=== PATIENT | female | born 1995 | race American Indian/Alaskan Native ===

== ENCOUNTER 2016-06-16 18:42 | Emergency (ER) | payer SELFPAY | END 2016-06-16 22:23 | disposition left against medical advice (07) | LOC: ED 18:42 | DX: R10.9 Unspecified abdominal pain (principal); Z53.21 Procedure and treatment not carried out due to patient leaving prior to being seen by health care provider ==

== ENCOUNTER 2016-06-27 23:59 | Emergency (ER) | payer BC ==
[2016-06-28 02:43] LABS: Basophils % (Auto) 0.2 % (0.0-1.8); Eosinophils % (Auto) 1.2 % (0.0-4.3); Mean Corpuscular HGB Conc 33 % (30-34); Mean Corpuscular Hemoglobin 29 pg (28-32); Mean Corpuscular Volume 90 fl (79-97); Platelet Count 230 K/mm3 (140-440); Red Blood Count 4.11 M/mm3 (3.65-5.03); Red Cell Distribution Width 13.8 % (13.2-15.2); White Blood Count 5.1 K/mm3 (4.5-11.0)
[2016-06-28 02:52] LABS: Bacteria,Urine 4+ /HPF (Negative); Bilirubin,Urine NEG (Negative); Blood,Urine LG (Negative); Ketones,Urine TR mg/dL (Negative); Leukocyte Esterase,Urine MOD (Negative); Mucus,Urine 3+ /HPF; Nitrite,Urine NEG (Negative); Urobilinogen,Urine < 2.0 mg/dL (<2.0)
[2016-06-28 02:55] LABS: RBC,Urine > 182.0 /HPF (0.0-6.0); WBC,Urine > 182.0 /HPF (0.0-6.0)
[2016-06-28 05:14] VITALS: BP 115/64
--- NOTE | 2016-06-28 05:17 | Emergency Department Report ---
ED Female HPI - General Chief complaint: Vaginal Bleeding Stated complaint: VAGINAL BLEEDING, ABDOMINAL PAIN Time Seen by Provider: 06/28/16 05:00 Source: patient, RN notes reviewed Mode of arrival: Ambulatory Limitations: No Limitations - History of Present Illness Initial comments: This is a 20-year-old female. She is previously unknown to me. She does not have a primary care doctor. She has no chronic medical conditions. She presents to the ER with vaginal bleeding for 2 days. The bleeding is constant. It is associated with vaginal cramping. There is no nausea, vomiting or diarrhea. No fevers or chills. No chest pain or shortness of breath. There is no right lower quadrant pain. No irritative or obstructive urinary symptoms. No urinary frequency. No recent vaginal trauma, no recent sexual intercourse. MD Complaint: vaginal bleeding -: Gradual Location: suprapubic Radiation: non-radiating Severity: mild Quality: cramping Consistency: intermittent Improves with: none Worsens with: none Are you Now?: No Associated Symptoms: vaginal bleeding. denies: vaginal discharge - Related Data Sexually active: Yes Previous Rx's Medication Instructions Recorded Last Taken Type Amoxicillin/K Clav Tab [Augmentin 1 tab PO BID #20 tablet 03/17/14 Unknown Rx 875MG] Famotidine [Pepcid] 20 mg PO BID #40 tablet 03/17/14 Unknown Rx Fluticasone Propionate [Flonase] 2 sprays NS QDAY #1 bottle 03/17/14 Unknown Rx Loratadine [Claritin] 10 mg PO DAILY #30 tablet 03/17/14 Unknown Rx Promethazine /Codeine 5 ml PO Q6H PRN #150 ml 03/17/14 Unknown Rx [Phenergan/Codeine 6.25-10 mg/5 ml] Nitrofurantoin [place]/M-Cryst 100 mg PO Q12HR #14 capsule 08/12/15 Unknown Rx [Macrobid CAP] Phenazopyridine [Pyridium] 200 mg PO BID #6 tab 08/12/15 Unknown Rx Naproxen [Naprosyn] 500 mg PO BID #20 tablet 12/07/15 Unknown Rx Ketorolac [Toradol] 10 mg PO Q6H PRN #20 tablet 06/28/16 Unknown Rx Allergies Allergy/AdvReac Type Severity Reaction Status Date / Time No Known Allergies Allergy Verified 03/17/14 09:17 ED Review of Systems ROS: Stated complaint: VAGINAL BLEEDING, ABDOMINAL PAIN Other details as noted in HPI Constitutional: denies: fever Eyes: denies: vision change ENT: denies: epistaxis Respiratory: denies: cough Cardiovascular: denies: chest pain Gastrointestinal: abdominal pain Genitourinary: abnormal menses Musculoskeletal: as per HPI Skin: denies: lesions Neurological: denies: weakness Psychiatric: denies: depression ED Past Medical Hx - Past Medical History Previous Medical History?: Yes Hx Asthma: Yes - Surgical History Past Surgical History?: No - Social History Smoking Status: Current Every Day Smoker Substance Use Type: None - Medications Home Medications: Home Medications Medication Instructions Recorded Confirmed Last Taken Type Amoxicillin/K Clav Tab [Augmentin 1 tab PO BID #20 tablet 03/17/14 Unknown Rx 875MG] Famotidine [Pepcid] 20 mg PO BID #40 tablet 03/17/14 Unknown Rx Fluticasone Propionate [Flonase] 2 sprays NS QDAY #1 bottle 03/17/14 Unknown Rx Loratadine [Claritin] 10 mg PO DAILY #30 tablet 03/17/14 Unknown Rx Promethazine /Codeine 5 ml PO Q6H PRN #150 ml 03/17/14 Unknown Rx [Phenergan/Codeine 6.25-10 mg/5 ml] Nitrofurantoin [place]/M-Cryst 100 mg PO Q12HR #14 capsule 08/12/15 Unknown Rx [Macrobid CAP] Phenazopyridine [Pyridium] 200 mg PO BID #6 tab 08/12/15 Unknown Rx Naproxen [Naprosyn] 500 mg PO BID #20 tablet 12/07/15 Unknown Rx Ketorolac [Toradol] 10 mg PO Q6H PRN #20 tablet 06/28/16 Unknown Rx ED Physical Exam - General Limitations: No Limitations General appearance: alert, in no apparent distress - Head Head exam: Present: atraumatic, normocephalic - Eye Eye exam: Present: normal appearance, EOMI. Absent: nystagmus - ENT ENT exam: Present: normal exam, normal orophraynx, mucous membranes moist, normal external ear exam - Neck Neck exam: Present: normal inspection, full ROM. Absent: tenderness, meningismus - Respiratory Respiratory exam: Present: normal lung sounds bilaterally. Absent: respiratory distress, wheezes, rales, rhonchi, stridor, chest wall tenderness, accessory muscle use, decreased breath sounds, prolonged expiratory - Cardiovascular Cardiovascular Exam: Present: regular rate, normal rhythm, normal heart sounds. Absent: bradycardia, tachycardia, irregular rhythm, systolic murmur, diastolic murmur, rubs, gallop - GI/Abdominal GI/Abdominal exam: Present: soft, normal bowel sounds. Absent: distended, tenderness, guarding, pulsatile mass - External exam: Present: normal external exam Speculum exam: Present: vaginal bleeding Bi-manual exam: Present: normal bi-manual exam, other (minimal vaginal bleeding. During the gynecologic examination, I am escorted by emergency room this Hellen Ortiz). Absent: cervical motion tendernes, adnexal tenderness, adnexal mass - Extremities Exam Extremities exam: Present: normal inspection, full ROM, normal capillary refill. Absent: tenderness, pedal edema, joint swelling, calf tenderness - Back Exam Back exam: Present: normal inspection, full ROM. Absent: tenderness, CVA tenderness (R), CVA tenderness (L), muscle spasm, paraspinal tenderness, vertebral tenderness - Neurological Exam Neurological exam: Present: alert, oriented X3, normal gait, other (Extraocular movements intact. Tongue midline. No facial droop. Facial sensation intact to light touch in the V1, V2, V3 distribution bilaterally. 5 and 5 strength in 4 extremities.. Sensation is intact to light touch in 4 extremities.). Absent : motor sensory deficit - Psychiatric Psychiatric exam: Present: normal affect, normal mood - Skin Skin exam: Present: warm, dry, intact, normal color. Absent: rash ED Course Vital Signs 06/28/16 06/28/16 01:16 05:12 Temperature 97.6 F 98.3 F Pulse Rate 62 78 Respiratory 14 Rate Blood Pressure 111/57 Blood Pressure 115/64 [Left] O2 Sat by Pulse 100 99 Oximetry - Reevaluation(s) Reevaluation #1: 06/28/16 05:24 Differential diagnosis: Dysfunctional uterine bleeding, , urinary tract infection Assessment and plan: 20-year-old female with crampy vaginal bleeding, no irritative or obstructive urinary symptoms, urinalysis shows 4+ bacteria, this is most likely secondary to vaginal bleeding. Hemoglobin and hematocrit are stable, she is not symptomatic, does not require packed red blood cell transfusion. Her gynecologic and abdominal examinations are benign and unremarkable, she is nontender, mildly she requires advanced imaging at this time. Symptoms are most likely consistent with dysfunctional uterine bleeding. I don't believe antibiotic therapy is indicated at this time. Patient declines pain medication at this time. She is instructed to follow up with outpatient gynecology. Return precautions are extensively reviewed. ED Medical Decision Making - Lab Data Result diagrams: 06/28/16 02:02 Vital Signs 06/28/16 06/28/16 01:16 05:12 Temperature 97.6 F 98.3 F Pulse Rate 62 78 Respiratory 14 Rate Blood Pressure 111/57 Blood Pressure 115/64 [Left] O2 Sat by Pulse 100 99 Oximetry Lab Results 06/28/16 06/28/16 06/28/16 Range/Units 02:02 02:02 02:05 WBC 5.1 (4.5-11.0) K/mm3 RBC 4.11 (3.65-5.03) M/mm3 Hgb 12.0 (10.1-14.3) gm/dl Hct 37.0 (30.3-42.9) % MCV 90 (79-97) fl MCH 29 (28-32) pg MCHC 33 (30-34) % RDW 13.8 (13.2-15.2) % Plt Count 230 (140-440) K/mm3 Lymph % (Auto) 45.2 H (13.4-35.0) % [place] % (Auto) 8.6 H (0.0-7.3) % Eos % (Auto) 1.2 (0.0-4.3) % Baso % (Auto) 0.2 (0.0-1.8) % Lymph # 2.3 (1.2-5.4) K/mm3 [place] # 0.4 (0.0-0.8) K/mm3 Eos # 0.1 (0.0-0.4) K/mm3 Baso # 0.0 (0.0-0.1) K/mm3 Seg Neutrophils % 44.8 (40.0-70.0) % Seg Neutrophils # 2.3 (1.8-7.7) K/mm3 HCG, Quant < 2 (0-4) mIU/mL Urine Color (Yellow) Urine Turbidity (Clear) Urine pH (5.0-7.0) Ur Specific [place] (1.003-1.030) Urine Protein (Negative) mg/dL Urine Glucose (UA) (Negative) mg/dL Urine Ketones (Negative) mg/dL Urine Blood (Negative) Urine Nitrite (Negative) Ur Reducing Substances Urine Bilirubin (Negative) Urine Ictotest Urine Urobilinogen (<2.0) mg/dL Ur Leukocyte Esterase (Negative) Urine WBC (Auto) (0.0-6.0) /HPF Urine RBC (Auto) (0.0-6.0) /HPF U Epithel Cells (Auto) (0-13.0) /HPF Urine Bacteria (Auto) (Negative) /HPF Urine Mucus /HPF Urine HCG, Qual (Negative) Blood Type B POSITIVE Antibody Screen TNR 06/28/16 Range/Units Unknown WBC (4.5-11.0) K/mm3 RBC (3.65-5.03) M/mm3 Hgb (10.1-14.3) gm/dl Hct (30.3-42.9) % MCV (79-97) fl MCH (28-32) pg MCHC (30-34) % RDW (13.2-15.2) % Plt Count (140-440) K/mm3 Lymph % (Auto) (13.4-35.0) % [place] % (Auto) (0.0-7.3) % Eos % (Auto) (0.0-4.3) % Baso % (Auto) (0.0-1.8) % Lymph # (1.2-5.4) K/mm3 [place] # (0.0-0.8) K/mm3 Eos # (0.0-0.4) K/mm3 Baso # (0.0-0.1) K/mm3 Seg Neutrophils % (40.0-70.0) % Seg Neutrophils # (1.8-7.7) K/mm3 HCG, Quant (0-4) mIU/mL Urine Color Red (Yellow) Urine Turbidity Cloudy (Clear) Urine pH 6.0 (5.0-7.0) Ur Specific [place] 1.030 (1.003-1.030) Urine Protein 100 mg/dl (Negative) mg/dL Urine Glucose (UA) Neg (Negative) mg/dL Urine Ketones Tr (Negative) mg/dL Urine Blood Lg (Negative) Urine Nitrite Neg (Negative) Ur Reducing Substances Not Reportable Urine Bilirubin Neg (Negative) Urine Ictotest Not Reportable Urine Urobilinogen < 2.0 (<2.0) mg/dL Ur Leukocyte Esterase Mod (Negative) Urine WBC (Auto) > 182.0 H (0.0-6.0) /HPF Urine RBC (Auto) > 182.0 (0.0-6.0) /HPF U Epithel Cells (Auto) 4.0 (0-13.0) /HPF Urine Bacteria (Auto) 4+ (Negative) /HPF Urine Mucus 3+ /HPF Urine HCG, Qual Negative (Negative) Blood Type Antibody Screen Critical care attestation.: If time is entered above; I have spent that time in minutes in the direct care of this critically ill patient, excluding procedure time. ED Disposition Clinical Impression: Vaginal bleeding Disposition: DISCHARGED TO HOME OR SELFCARE Is pt being admited?: No Does the pt Need Aspirin: No Condition: Stable Instructions: Dysfunctional Uterine Bleeding (ED) Additional Instructions: Take the medication as needed/directed. Cultures was sent today, results will be available in the next 3-5 days. Follow up with any of the listed gynecology specialist within the next 7-10 days. Return to the ER right away with new pain , worsened pain, migration of pain, bleeding more than 2 pads soaked through and through per hour, dizziness, lightheadedness, chest pain or shortness of breath. Had a primary care doctor or facsimile operator specialist contact medical records department to obtain culture results. smptoms most likely coming from dysfunctional uterine bleeding, which is a form of irregular menstruation secondary to hormonal abnormalities. A facsimile operator is best suited to manage this. Prescriptions: Ketorolac [Toradol] 10 mg PO Q6H PRN #20 tablet PRN Reason: Pain Referrals: CHERRY BROTHERS MD [Primary Care Provider] - 3-5 Days [facility] [Provider Group] - 3-5 Days [facility] [Provider Group] - 3-5 Days [facility] [Provider Group] - 3-5 Days Forms: Work/School Release Form(ED)
== END 2016-06-28 07:09 | disposition home or self-care (01) ==
LOC: ED 23:59
DX: N93.9 Abnormal uterine and vaginal bleeding, unspecified (principal); J45.909 Unspecified asthma, uncomplicated; F17.200 Nicotine dependence, unspecified, uncomplicated
CPT/HCPCS: 36415; 81001; 81025; 84702; 85025; 86850; 86900; 86901; 87210; 87591

== ENCOUNTER 2017-05-20 08:18 | Emergency (ER) | payer BC ==
[2017-05-20 08:34] VITALS: BP 138/78
[2017-05-20 08:48] LABS: Basophils % (Auto) 0.5 % (0.0-1.8); Hematocrit 38.4 % (30.3-42.9); Lymphocytes # (Auto) 1.4 K/mm3 (1.2-5.4); Lymphocytes % (Auto) 41.8 % (13.4-35.0); Mean Corpuscular HGB Conc 34 % (30-34); Mean Corpuscular Hemoglobin 31 pg (28-32); Mean Corpuscular Volume 91 fl (79-97); Monocytes # (Auto) 0.3 K/mm3 (0.0-0.8); Platelet Count 239 K/mm3 (140-440); Red Cell Distribution Width 13.3 % (13.2-15.2)
[2017-05-20 09:03] LABS: Alanine Aminotransferase 12 units/L (7-56); Albumin 4.3 g/dL (3.9-5); BUN/Creatinine Ratio 14; Blood Urea Nitrogen 7 mg/dL (7-17); Calcium 8.9 mg/dL (8.4-10.2); Hemolysis Index 2
[2017-05-20 09:10] LABS: Bacteria,Urine 2+ /HPF (Negative); Bilirubin,Urine NEG (Negative); Blood,Urine NEG (Negative); Color,Urine Yellow (Yellow); Hyaline Casts,Urine 1 /LPF; Mucus,Urine FEW /HPF; Protein,Urine <15 mg/dL mg/dL (Negative); Urobilinogen,Urine < 2.0 mg/dL (<2.0)
--- NOTE | 2017-05-20 09:13 | Emergency Department Report ---
ED Abdominal Pain HPI - General Chief Complaint: Abdominal Pain Stated Complaint: RIGHT FLANK PAIN Time Seen by Provider: 05/20/17 09:12 Source: patient Mode of arrival: Ambulatory Limitations: No Limitations - History of Present Illness Initial Comments: Patient complains of an area of soreness which is essentially at the right anterior costal cartilage margin. Later after her ultrasound was negative, she informed me that she has a small child that lives to run right into her chest area and that it might be just inflamed. She's had the pain intermittently for 2 weeks. It is unrelated to eating. This had no nausea no vomiting no diarrhea no radiation of the pain or flank pain itself. She denies any urinary symptoms. She's had no fever or chills. She's had no recent travel, no cough and no dyspnea. There's been no swelling or pain. She denies any prior medical history. MD Complaint: abdominal pain -: Gradual, week(s) Location: RUQ Radiation: none Migration to: no migration Severity: moderate Quality: aching Consistency: intermittent, now resolved Improves With: nothing Worsens With: nothing Associated Symptoms: denies other symptoms - Related Data Previous Rx's Medication Instructions Recorded Last Taken Type Amoxicillin/K Clav Tab [Augmentin 1 tab PO BID #20 tablet 03/17/14 Unknown Rx 875MG] Famotidine [Pepcid] 20 mg PO BID #40 tablet 03/17/14 Unknown Rx Fluticasone Propionate [Flonase] 2 sprays NS QDAY #1 bottle 03/17/14 Unknown Rx Loratadine [Claritin] 10 mg PO DAILY #30 tablet 03/17/14 Unknown Rx Promethazine /Codeine 5 ml PO Q6H PRN #150 ml 03/17/14 Unknown Rx [Phenergan/Codeine 6.25-10 mg/5 ml] Nitrofurantoin [place]/M-Cryst 100 mg PO Q12HR #14 capsule 08/12/15 Unknown Rx [Macrobid CAP] Phenazopyridine [Pyridium] 200 mg PO BID #6 tab 08/12/15 Unknown Rx Naproxen [Naprosyn] 500 mg PO BID #20 tablet 12/07/15 Unknown Rx Ketorolac [Toradol] 10 mg PO Q6H PRN #20 tablet 06/28/16 Unknown Rx Sulfamethoxazole/Trimethoprim 1 each PO BID #14 tablet 05/20/17 Unknown Rx [Bactrim 400-80 mg Tablet] Allergies Allergy/AdvReac Type Severity Reaction Status Date / Time No Known Allergies Allergy Verified 03/17/14 09:17 ED Review of Systems ROS: Stated complaint: RIGHT FLANK PAIN Other details as noted in HPI Constitutional: denies: chills, fever Eyes: denies: eye pain, eye discharge, vision change ENT: denies: ear pain, throat pain Respiratory: denies: cough, shortness of breath, wheezing Cardiovascular: denies: chest pain, palpitations Endocrine: no symptoms reported Gastrointestinal: denies: abdominal pain, nausea, diarrhea Genitourinary: denies: urgency, dysuria, discharge Musculoskeletal: as per HPI. denies: back pain, joint swelling, arthralgia Skin: denies: rash, lesions Neurological: denies: headache, weakness, paresthesias Psychiatric: denies: anxiety, depression Hematological/Lymphatic: denies: easy bleeding, easy bruising ED Past Medical Hx - Past Medical History Hx Asthma: Yes - Surgical History Past Surgical History?: No - Social History Smoking Status: Former Smoker Substance Use Type: Marijuana - Medications Home Medications: Home Medications Medication Instructions Recorded Confirmed Last Taken Type Amoxicillin/K Clav Tab [Augmentin 1 tab PO BID #20 tablet 03/17/14 Unknown Rx 875MG] Famotidine [Pepcid] 20 mg PO BID #40 tablet 03/17/14 Unknown Rx Fluticasone Propionate [Flonase] 2 sprays NS QDAY #1 bottle 03/17/14 Unknown Rx Loratadine [Claritin] 10 mg PO DAILY #30 tablet 03/17/14 Unknown Rx Promethazine /Codeine 5 ml PO Q6H PRN #150 ml 03/17/14 Unknown Rx [Phenergan/Codeine 6.25-10 mg/5 ml] Nitrofurantoin [place]/M-Cryst 100 mg PO Q12HR #14 capsule 08/12/15 Unknown Rx [Macrobid CAP] Phenazopyridine [Pyridium] 200 mg PO BID #6 tab 08/12/15 Unknown Rx Naproxen [Naprosyn] 500 mg PO BID #20 tablet 12/07/15 Unknown Rx Ketorolac [Toradol] 10 mg PO Q6H PRN #20 tablet 06/28/16 Unknown Rx Sulfamethoxazole/Trimethoprim 1 each PO BID #14 tablet 05/20/17 Unknown Rx [Bactrim 400-80 mg Tablet] ED Physical Exam - General Limitations: No Limitations General appearance: alert, in no apparent distress - Head Head exam: Present: atraumatic, normocephalic - Eye Eye exam: Present: normal appearance. Absent: scleral icterus - ENT ENT exam: Present: mucous membranes moist - Neck Neck exam: Present: normal inspection - Respiratory Respiratory exam: Present: normal lung sounds bilaterally. Absent: respiratory distress - Cardiovascular Cardiovascular Exam: Present: regular rate, normal rhythm. Absent: systolic murmur, diastolic murmur, rubs, gallop - GI/Abdominal GI/Abdominal exam: Present: soft, normal bowel sounds. Absent: distended, tenderness, guarding, rebound, rigid, organomegaly, mass, bruit, pulsatile mass , hernia - Extremities Exam Extremities exam: Present: normal inspection. Absent: pedal edema, joint swelling, calf tenderness - Back Exam Back exam: Present: normal inspection. Absent: CVA tenderness (R), CVA tenderness (L) - Neurological Exam Neurological exam: Present: alert, oriented X3, CN II-XII intact. Absent: motor sensory deficit - Psychiatric Psychiatric exam: Present: normal affect, normal mood - Skin Skin exam: Present: warm, dry, intact, normal color. Absent: rash ED Course Vital Signs 05/20/17 08:30 Temperature 98.3 F Pulse Rate 81 Respiratory 20 Rate Blood Pressure 138/78 O2 Sat by Pulse 100 Oximetry - Reevaluation(s) Reevaluation #1: Patient remains asymptomatic here. I'm going to cover her nitrite positive urine with Macrobid and culture. She is referred to her primary care provider for follow-up. 05/20/17 11:52 ED Medical Decision Making - Lab Data Result diagrams: 05/20/17 08:36 05/20/17 08:36 Laboratory Results - last 24 hr 05/20/17 05/20/17 05/20/17 08:34 08:36 08:36 WBC 3.3 L RBC 4.20 Hgb 13.0 Hct 38.4 MCV 91 MCH 31 MCHC 34 RDW 13.3 Plt Count 239 Lymph % (Auto) 41.8 H [place] % (Auto) 8.0 H Eos % (Auto) 1.0 Baso % (Auto) 0.5 Lymph # 1.4 [place] # 0.3 Eos # 0.0 Baso # 0.0 Seg Neutrophils % 48.7 Seg Neutrophils # 1.6 L Sodium 139 Potassium 4.3 Chloride 99.8 Carbon Dioxide 28 Anion Gap 16 BUN 7 Creatinine 0.5 L Estimated GFR > 60 BUN/Creatinine Ratio 14 Glucose 87 Calcium 8.9 Total Bilirubin 0.60 AST 22 ALT 12 Alkaline Phosphatase 61 Total Protein 7.3 Albumin 4.3 Albumin/Globulin Ratio 1.4 HCG, Qual Urine Bilirubin Neg Urine RBC (Auto) 1.0 U Epithel Cells (Auto) 1.0 05/20/17 08:36 WBC RBC Hgb Hct MCV MCH MCHC RDW Plt Count Lymph % (Auto) [place] % (Auto) Eos % (Auto) Baso % (Auto) Lymph # [place] # Eos # Baso # Seg Neutrophils % Seg Neutrophils # Sodium Potassium Chloride Carbon Dioxide Anion Gap BUN Creatinine Estimated GFR BUN/Creatinine Ratio Glucose Calcium Total Bilirubin AST ALT Alkaline Phosphatase Total Protein Albumin Albumin/Globulin Ratio HCG, Qual Negative Urine Bilirubin Urine RBC (Auto) U Epithel Cells (Auto) Laboratory Results - last 24 hr 05/20/17 05/20/17 05/20/17 08:34 08:36 08:36 WBC 3.3 L RBC 4.20 Hgb 13.0 Hct 38.4 MCV 91 MCH 31 MCHC 34 RDW 13.3 Plt Count 239 Lymph % (Auto) 41.8 H [place] % (Auto) 8.0 H Eos % (Auto) 1.0 Baso % (Auto) 0.5 Lymph # 1.4 [place] # 0.3 Eos # 0.0 Baso # 0.0 Seg Neutrophils % 48.7 Seg Neutrophils # 1.6 L Sodium 139 Potassium 4.3 Chloride 99.8 Carbon Dioxide 28 Anion Gap 16 BUN 7 Creatinine 0.5 L Estimated GFR > 60 BUN/Creatinine Ratio 14 Glucose 87 Calcium 8.9 Total Bilirubin 0.60 AST 22 ALT 12 Alkaline Phosphatase 61 Total Protein 7.3 Albumin 4.3 Albumin/Globulin Ratio 1.4 HCG, Qual Urine Color Yellow Urine Turbidity Clear Urine pH 6.0 Ur Specific [place] 1.019 Urine Protein <15 mg/dl Urine Glucose (UA) Neg Urine Ketones Neg Urine Blood Neg Urine Nitrite Pos Urine Bilirubin Neg Urine Urobilinogen < 2.0 Ur Leukocyte Esterase Tr Urine WBC (Auto) 3.0 Urine RBC (Auto) 1.0 U Epithel Cells (Auto) 1.0 Urine Bacteria (Auto) 2+ Hyaline Casts 1 Urine Mucus Few 05/20/17 08:36 WBC RBC Hgb Hct MCV MCH MCHC RDW Plt Count Lymph % (Auto) [place] % (Auto) Eos % (Auto) Baso % (Auto) Lymph # [place] # Eos # Baso # Seg Neutrophils % Seg Neutrophils # Sodium Potassium Chloride Carbon Dioxide Anion Gap BUN Creatinine Estimated GFR BUN/Creatinine Ratio Glucose Calcium Total Bilirubin AST ALT Alkaline Phosphatase Total Protein Albumin Albumin/Globulin Ratio HCG, Qual Negative Urine Color Urine Turbidity Urine pH Ur Specific [place] Urine Protein Urine Glucose (UA) Urine Ketones Urine Blood Urine Nitrite Urine Bilirubin Urine Urobilinogen Ur Leukocyte Esterase Urine WBC (Auto) Urine RBC (Auto) U Epithel Cells (Auto) Urine Bacteria (Auto) Hyaline Casts Urine Mucus - Radiology Data Radiology results: report reviewed (right upper quadrant ultrasound was normal) Critical care attestation.: If time is entered above; I have spent that time in minutes in the direct care of this critically ill patient, excluding procedure time. ED Disposition Clinical Impression: Abdominal pain Qualifiers: Abdominal location: right upper quadrant Qualified Code(s): R10.11 - Right upper quadrant pain Urinary tract infection Qualifiers: Urinary tract infection type: site unspecified Hematuria presence: without hematuria Qualified Code(s): N39.0 - Urinary tract infection, site not specified Disposition: - TO HOME OR SELFCARE Is pt being admited?: No Does the pt Need Aspirin: No Condition: Stable Instructions: Abdominal Pain (ED), Urinary Tract Infection in Women (ED) Additional Instructions: Return any acute change or problem. Follow-up with primary care provider such as the [facility]. Urine culture report will be ready in 2-3 days. Rx antibiotic. Prescriptions: Sulfamethoxazole/Trimethoprim [Bactrim 400-80 mg Tablet] 1 each PO BID #14 tablet Referrals: PRIMARY CARE, [Primary Care Provider] - 3-5 Days Time of Disposition: 11:54
--- NOTE | 2017-05-20 10:48 | Ultrasound Report ---
ULTRASOUND ABDOMEN LIMITED: TECHNIQUE: Transabdominal ultrasound with color Doppler interrogation. HISTORY: right upper quadrant abdominal pain. COMPARISON: none. FINDINGS: LIVER: Normal. BILIARY SYSTEM: Normal. PANCREAS: Normal. RIGHT KIDNEY: Normal. PROXIMAL AORTA: Normal. ASCITES: None. IMPRESSION: Unremarkable exam.
== END 2017-05-20 13:47 | disposition home or self-care (01) ==
LOC: ED 08:18
DX: N39.0 Urinary tract infection, site not specified (principal); F12.10 Cannabis abuse, uncomplicated; Z87.891 Personal history of nicotine dependence
CPT/HCPCS: 36415; 76705; 80053; 81001; 84703; 85025; 87076; 87086; 87186; 99284

== ENCOUNTER 2017-11-17 17:46 | Emergency (ER) | payer OTHER ==
[2017-11-17 18:21] VITALS: BP 115/71
[2017-11-17] MEDS ORDERED: BENADRYL PO ONE (21:16)
[2017-11-17] MEDS ORDERED: REGLAN PO ONE (21:16)
[2017-11-17] MEDS ORDERED: DELTASONE PO ONE (21:16)
[2017-11-17] MEDS ORDERED: TYLENOL PO ONE (21:16)
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
== END 2017-11-17 22:23 | disposition home or self-care (01) ==
LOC: ED 17:46
DX: J30.9 Allergic rhinitis, unspecified (principal); R51 Headache; J45.909 Unspecified asthma, uncomplicated; F12.10 Cannabis abuse, uncomplicated; F17.200 Nicotine dependence, unspecified, uncomplicated; V49.49XA Driver injured in collision with other motor vehicles in traffic accident, initial encounter; Y93.89 Activity, other specified; Y92.89 Other specified places as the place of occurrence of the external cause; Y99.8 Other external cause status
CPT/HCPCS: 99282; J7512

== ENCOUNTER 2018-08-28 10:01 | Emergency (ER) | payer OTHER ==
[2018-08-28 10:12] VITALS: BP 138/66
[2018-08-28] MEDS ORDERED: IBUPROFEN PO ONE (10:32)
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
[2018-08-28 11:10] LABS: Bacteria,Urine 2+ /HPF (Negative); Bilirubin,Urine NEG (Negative); Blood,Urine NEG (Negative); Color,Urine Yellow (Yellow); Mucus,Urine FEW /HPF; Protein,Urine <15 mg/dL mg/dL (Negative); Urobilinogen,Urine < 2.0 mg/dL (<2.0)
[2018-08-28 11:12] LABS: HCG Qualitative,Urine Negative (Negative)
== END 2018-08-28 11:34 | disposition home or self-care (01) ==
LOC: ED 10:01
DX: R51 Headache (principal); M79.10 Myalgia, unspecified site; R30.0 Dysuria; V89.2XXA Person injured in unspecified motor-vehicle accident, traffic, initial encounter; Y93.89 Activity, other specified; Y92.488 Other paved roadways as the place of occurrence of the external cause; Y99.8 Other external cause status
CPT/HCPCS: 81001; 81025; 99283

== ENCOUNTER 2018-10-25 11:12 | Emergency (ER) | payer OTHER ==
[2018-10-25 11:19] VITALS: BP 118/67
--- NOTE | 2018-10-25 11:20 | Event Note ---
ED Screening Note ED Screening Note: left sided abdominal pain three days +nausea +two episodes of emesis +diarrhea no dysuria LNMP: September 24 PMHx: none allergies: none PSHx: none This initial assessment/diagnostic orders/clinical plan/treatment(s) is/are subject to change based on patients health status, clinical progression and re-assessment by fellow clinical providers in the ED. Further treatment and workup at subsequent clinical providers discretion. Patient/guardian urged not to elope from the ED as their condition may be serious if not clinically assessed and managed.
[2018-10-25] MEDS ORDERED: ZOFRAN ODT PO ONE (12:29)
--- NOTE | 2018-10-25 12:29 | Emergency Department Report ---
ED Abdominal Pain HPI - General Chief Complaint: Abdominal Pain Stated Complaint: LIGHT HEAD/VOMITING/ABD PAIN Time Seen by Provider: 10/25/18 11:18 Source: patient Mode of arrival: Ambulatory Limitations: No Limitations - History of Present Illness Initial Comments: Gardenia is a healthy 23-year-old female without significant past medical history presents with lightheadedness and two episodes of emesis while at work. Her last menstrual cycle was 4 weeks ago. She is concerned about abdominal wall strain. She had left upper quadrant pain after picking up her 40 pound nephew on yesterday. At this time she is pain-free. She does not have any fever. Nausea has since resolved. MD Complaint: abdominal pain -: days(s) (1) Location: [facility] Radiation: none Severity: mild Severity scale (0 -10): 4 Quality: dull Consistency: now resolved Improves With: nothing Worsens With: nothing Associated Symptoms: nausea, vomiting - Related Data Previous Rx's Medication Instructions Recorded Last Taken Type Cyclobenzaprine [Flexeril] 10 mg PO TID PRN #10 tablet 08/28/18 Unknown Rx Ibuprofen [Motrin] 800 mg PO Q8HR PRN #25 tablet 08/28/18 Unknown Rx predniSONE [Deltasone] 20 mg PO DAILY #5 tablet 08/28/18 Unknown Rx Promethazine [Phenergan] 25 mg PO Q6HR PRN #10 tab 10/25/18 Unknown Rx Allergies Allergy/AdvReac Type Severity Reaction Status Date / Time No Known Allergies Allergy Verified 10/25/18 11:13 ED Review of Systems ROS: Stated complaint: LIGHT HEAD/VOMITING/ABD PAIN Other details as noted in HPI Comment: All other systems reviewed and negative Constitutional: denies: diaphoresis, fever, malaise Gastrointestinal: abdominal pain, nausea, vomiting. denies: diarrhea ED Past Medical Hx - Past Medical History Previous Medical History?: No Hx Asthma: Yes - Surgical History Additional Surgical History: NONE - Social History Smoking Status: Never Smoker Substance Use Type: Alcohol, Marijuana - Medications Home Medications: Home Medications Medication Instructions Recorded Confirmed Last Taken Type Cyclobenzaprine [Flexeril] 10 mg PO TID PRN #10 tablet 08/28/18 Unknown Rx Ibuprofen [Motrin] 800 mg PO Q8HR PRN #25 tablet 08/28/18 Unknown Rx predniSONE [Deltasone] 20 mg PO DAILY #5 tablet 08/28/18 Unknown Rx Promethazine [Phenergan] 25 mg PO Q6HR PRN #10 tab 10/25/18 Unknown Rx ED Physical Exam - General Limitations: No Limitations General appearance: alert, in no apparent distress - Head Head exam: Present: atraumatic, normocephalic - Eye Eye exam: Present: normal appearance - ENT ENT exam: Present: mucous membranes moist - Neck Neck exam: Present: normal inspection, full ROM - Respiratory Respiratory exam: Present: normal lung sounds bilaterally. Absent: respiratory distress, wheezes, rales, rhonchi - Cardiovascular Cardiovascular Exam: Present: regular rate, normal rhythm. Absent: systolic murmur, diastolic murmur, rubs, gallop - GI/Abdominal GI/Abdominal exam: Present: soft, normal bowel sounds. Absent: distended, tenderness, guarding, rebound - Extremities Exam Extremities exam: Present: normal inspection - Back Exam Back exam: Present: normal inspection - Neurological Exam Neurological exam: Present: alert, oriented X3 - Psychiatric Psychiatric exam: Present: normal affect, normal mood - Skin Skin exam: Present: warm, dry, intact, normal color. Absent: rash ED Course Vital Signs 10/25/18 11:18 Temperature 99 F Pulse Rate 81 Respiratory 18 Rate Blood Pressure 118/67 O2 Sat by Pulse 100 Oximetry ED Medical Decision Making - Medical Decision Making Ximena presents with abdominal wall strain and dyspepsia. No indication of peritonitis given reassurance and return precautions. Prescribed promethazine. Critical care attestation.: If time is entered above; I have spent that time in minutes in the direct care of this critically ill patient, excluding procedure time. ED Disposition Clinical Impression: Dyspepsia, Abdominal wall strain Disposition: DC-01 TO HOME OR SELFCARE Is pt being admited?: No Does the pt Need Aspirin: No Condition: Stable Instructions: Abdominal Pain (ED), Muscle Strain (ED) Prescriptions: Promethazine [Phenergan] 25 mg PO Q6HR PRN #10 tab PRN Reason: Nausea Forms: Work/School Release Form(ED)
== END 2018-10-25 12:38 | disposition home or self-care (01) ==
LOC: ED 11:12
DX: S39.011A Strain of muscle, fascia and tendon of abdomen, initial encounter (principal); J45.909 Unspecified asthma, uncomplicated; F12.10 Cannabis abuse, uncomplicated; X58.XXXA Exposure to other specified factors, initial encounter; Y93.89 Activity, other specified; Y92.89 Other specified places as the place of occurrence of the external cause; Y99.8 Other external cause status; R10.13 Epigastric pain
CPT/HCPCS: 99282; Q0162